=== PATIENT | female | born 1990 | race Two or more races ===

== ENCOUNTER 2019-01-13 19:11 | Emergency (ER) | payer SELFPAY ==
[~2019-01-13] VITALS: Ht 162.6 cm; Wt 78.5 kg
[2019-01-13 19:38] VITALS: Ht 162.6 cm; Wt 78.5 kg
[2019-01-13 22:16] VITALS: BP 103/58
== END 2019-01-13 22:16 | disposition home or self-care (01) ==
LOC: ED 19:11
DX: S39.012A Strain of muscle, fascia and tendon of lower back, initial encounter (principal); J45.909 Unspecified asthma, uncomplicated; Z90.49 Acquired absence of other specified parts of digestive tract; X50.1XXA Overexertion from prolonged static or awkward postures, initial encounter; Y93.61 Activity, american tackle football; Y92.89 Other specified places as the place of occurrence of the external cause; Y99.8 Other external cause status
CPT/HCPCS: G0480; J1885; J2270; J2405